=== PATIENT | female | born 1990 | race Caucasian/White ===

== ENCOUNTER → 2016-08-02 | Outpatient (CLI) | payer BC ==
--- NOTE | 2016-08-02 10:49 | US ---
EXAMINATION TYPE: US venous doppler duplex LE RT DATE OF EXAM: 08/02/2016 10:01 AM COMPARISON: NONE CLINICAL HISTORY: 26-year-old female with right Leg, Edema/Pain right Calf M79.661,R22.41 Swelling. P atient is 37 wks with right leg pain, redness and swelling SIDE PERFORMED: right TECHNIQUE: The lower extremity deep venous system is examined utilizing real time linear array sonog kacie with graded compression, doppler sonography and color-flow sonography. FINDINGS: VESSELS IMAGED: External Iliac Vein (EIV) Common Femoral Vein Deep Femoral Vein Greater Saphenous Vein * Femoral Vein Popliteal Vein Small Saphenous Vein * (* superficial vessels) Right Leg: Negative for RLE DVT Scanned the patient's right upper medial calf at the focal area of redness and pain. No superficial or deep venous thrombus noted. The subcutaneous fat disease somewhat thickened, heterogeneous, and w ith edema along the superficial fascial plane. IMPRESSION: 1. No evidence for DVT within the right lower extremity imaged from the groin to the knee. 2. Along the medial upper right calf at the site of redness and pain, there is thickening of the subc utaneous fat and some superficial fascial edema. Correlate for cellulitis.
== END | disposition home or self-care (01) ==
LOC: RADUSWWP 09:26
PROVIDERS: ATTEND Obstetrics & Gynecology
DX: O26.893 Other specified pregnancy related conditions, third trimester (principal); R60.0 Localized edema; O99.89 Other specified diseases and conditions complicating pregnancy, childbirth and the puerperium; M79.661 Pain in right lower leg; Z3A.37 37 weeks gestation of pregnancy

== ENCOUNTER 2016-08-16 05:57 | Inpatient (IN) | payer BC ==
[2016-08-16] MEDS ORDERED: LIDOCAINE 1% (PF) 10 MG/ML (30 ML SDV) SQ PRN (06:19)
[2016-08-16] MEDS ORDERED: METHYLERGONOVINE 0.2 MG/ML 1 ML AMP IM PRN (06:19)
[2016-08-16] MEDS ORDERED: TERBUTALINE 1 MG/ML VIAL SQ PRN (06:19)
[2016-08-16] MEDS ORDERED: OXYTOCIN 10 UNIT/ML 1 ML VIAL IM PRN (06:19)
[2016-08-16] MEDS ORDERED: CARBOPROST TROMETHAMINE 250 MCG/ML 1 ML AMP IM PRN (06:19)
[2016-08-16 06:23] LABS: Glucose,Whole Blood 86 mg/dL (75-99)
[2016-08-16] MEDS: LACTATED RINGERS 1,000 ML IV SCH ×2 (06:54→12:53)
[2016-08-16 07:17] LABS: Basophils % (A) 0 %; CHCM 34.5; Eosinophils % (A) 0 %; HCT 37.4 % (34.0-46.0); HDW 2.83; HGB 12.8 gm/dL (11.4-16.0); Luc # (Auto) 0.17; Luc % (Auto) 2; Lymphocytes # (A) 1.1 k/uL (1.0-4.8); Lymphocytes % (A) 11 %; MCHC 34.2 g/dL (31.0-37.0); MCV 90.5 fL (80.0-100.0); Mean Platelet Volume 7.7; Monocytes # (A) 0.4 k/uL (0-1.0); Monocytes % (A) 4 %; Neutrophils # (A) 8.1 k/uL (1.3-7.7); Neutrophils % (A) 82 %; RBC 4.13 m/uL (3.80-5.40); RDW 13.7 % (11.5-15.5); WBC 9.8 k/uL (3.8-10.6); WBC (Perox) 10.42
--- NOTE | 2016-08-16 07:22 | P.HPOB ---
History of Present Illness This is a 26-year-old white female 1 para 0 EDC 08/23/2016 at 39 weeks gestation. Patient presents today for induction, with gestational diabetes on insulin. Blood sugars have been in normal healthy ranges. She has not taken insulin since Saturday. Blood sugar this morning on admission is 80. In addition, patient does report overall body itching, no rash.. She is having mild irregular contractions spontaneously. Fetus is been active throughout the . Past medical history is significant for asthma, under good control. She also has a history of fibromyalgia. Past surgical history tonsillectomy and adenoid ectomy and 2003. Current medications vitamins. ALLERGIES none known. 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 Family history is significant for breast cancer, hepatitis C, prostate cancer. history blood type is B+, rubella status nonimmune. Group B strep cultures, HIV testing, hepatitis B surface antigen, Pap smear, urine culture all negative. One hour Glucola elevated, 3 hour GTT consistent with gestational diabetes. Impression: 39 week intrauterine , gestational diabetes with good sugar control on insulin, rubella status nonimmune, here for elective induction of labor, all signs reassuring. Plan: Oxytocin per hospital protocol. Close maternal and surveillance. Anticipating normal spontaneous vaginal delivery. Past Medical History Past Medical History: Fibromyalgia History of Any Multi-Drug Resistant Organisms: None Reported Past Surgical History: Adenoidectomy, Tonsillectomy Past Anesthesia/Blood Transfusion Reactions: No Reported Reaction Past Psychological History: Anxiety Smoking Status: Never smoker Past Alcohol Use History: None Reported Past Drug Use History: None Reported Medications and Allergies Home Medications Medication Instructions Recorded Confirmed Type Pnv with Ca,No.72/Iron/FA 1 tab PO DAILY 05/31/16 08/16/16 History [ Plus Tablet] Insulin Glulisine [Apidra] 2 units SQ ACHS PRN 08/16/16 08/16/16 History Allergies Allergy/AdvReac Type Severity Reaction Status Date / Time No Known Allergies Allergy Verified 08/16/16 06:10 Exam - Vital Signs Vital signs: Intake and Output 08/15/16 08/16/16 08/16/16 22:59 06:59 14:59 Other: Weight 70.307 kg
[2016-08-16] MEDS: OXYTOCIN 20 UNITS/1000 ML NS 1,000 ML IV SCH (07:24)
[2016-08-16 07:33] VITALS: BMI 27.4
[2016-08-16] MEDS ORDERED: SODIUM CHLORIDE 0.9% 100 ML BAG ONE (11:17)
[2016-08-16] MEDS ORDERED: BUPIVACAINE (PF) 0.25% 30 ML VIAL ONE (11:17)
[2016-08-16] MEDS ORDERED: fentaNYL (PF) 50 MCG/ML 5 ML AMP ONE (11:17)
[2016-08-16] MEDS ORDERED: HYDROmorphone (PF) 1 MG/ML ONE (16:41)
[2016-08-16] MEDS ORDERED: SUCCINYLCHOLINE CHLORIDE 100 MG/5 ML SYR IV ONE (16:41)
[2016-08-16] MEDS ORDERED: OXYTOCIN 10 UNIT/ML 1 ML VIAL ONE (16:41)
[2016-08-16] MEDS ORDERED: PROPOFOL 10 MG/ML 20 ML VIAL IV ONE (16:41)
[2016-08-16] MEDS ORDERED: diphenhydrAMINE 25 MG CAP PO PRN (17:26)
[2016-08-16] MEDS ORDERED: METOCLOPRAMIDE 5 MG/ML 2 ML VIAL IVP PRN (17:26)
[2016-08-16] MEDS ORDERED: ACETAMINOPHEN TAB 325 MG TAB PO PRN (17:26)
[2016-08-16] MEDS ORDERED: NALOXONE 0.4 MG/ML 1 ML VIAL IV PRN (17:26)
[2016-08-16] MEDS ORDERED: ZOLPIDEM 5 MG TAB PO PRN (17:26)
[2016-08-16] MEDS ORDERED: diphenhydrAMINE 50 MG CAP PO PRN (17:26)
[2016-08-16] MEDS ORDERED: HYDROmorphone PCA 5 MG/25 ML SYRINGE IV PRN (17:26)
[2016-08-16] MEDS ORDERED: diphenhydrAMINE 50 MG/ML 1 ML VIAL IVP PRN ×2 (17:26)
[2016-08-16] MEDS ORDERED: ONDANSETRON 4 MG/2 ML VIAL IVP PRN (17:26)
--- NOTE | 2016-08-16 17:26 | P.OP ---
Date of Procedure: 08/16/16 Preoperative Diagnosis: Gestational diabetic on insulin, 39 weeks gestation, nonreassuring heart tones Postoperative Diagnosis: I occiput transverse position, tight nuchal cord 1 Procedure(s) Performed: Primary low transverse section, STAT Anesthesia: MICHAEL Surgeon: Norma Flores [employer] Design Engineer #1: Jose Daniels Estimated Blood Loss (ml): 300 IV fluids (ml): 800 Urine output (ml): 100 Pathology: other Condition: stable (Placenta) Disposition: PACU Description of Procedure: Patient is brought to the operating suite where a general anesthetic is administered without difficulty. The decision for stat was made based upon nonreassuring heart tones, worsening with epidural bolusing. Martinez catheter is placed to direct drainage. The appropriate timeout is performed. The abdomen is prepped and draped in the usual sterile fashion. A low transverse skin incision is made in this is carried down through the subcutaneous tissue to the fascia. Fascia is isolated, scored and extended bilaterally with curved Stearns scissors. Peritoneum is next identified and incised, there is no bowel or bladder involvement. The bladder blade is placed over the bladder and at all times the bladder is Well from the operative field to avoid bladder and/or ureteral injury. The uterus is entered in a low transverse fashion. The incision is extended manually. The head is delivered in the right occiput transverse position, there was a tight nuchal cord 1 that is reduced. The oropharynx nasopharynx and external nares are bulb suctioned. The patient is officially delivered of a liveborn female infant at 16 50 hours. The umbilical cord is doubly clamped and ligated, she is handed to waiting nurses for evaluation where scores of 48 and 9 at one and 5 and 10 minutes respectively are given. Cord gases are sent to the lab for evaluation. The placentas delivered manually, it is inspected and noted to be intact with trivascular cord at 1651 hrs. At this time the uterus is externalized. 2 g of Kefzol are given intravenously. Pitocin is also given. Uterus is massaged and hemostasis is excellent. The uterus is wiped clean with a sterile sponge to avoid any retained products of conception. The uterus is closed in a two-step fashion, first layer running locking, second layer imbricated. Excellent reapproximation is noted. Bilateral tubes and ovaries are normal to inspection. The abdomen is suctioned with suction on guard and the uterus is gently placed back into the abdominal cavity. Bilateral gutters are inspected and cleaned. The incision is once again inspected, noted to be nicely intact. Peritoneum was allowed to close by secondary intention. Fascia is closed in a running fashion with 0 Vicryl suture with over ligation in the midline. Subcutaneous tissue was irrigated, noted to be clean and dry. It is reapproximated with 3-0 Vicryl in a running stitch. 4-0 undyed Vicryl in a subcuticular manner is used for final skin closure. All sponge needle and enhancement counts are correct at the end of the procedure. Patient is brought back to the recovery room in very good condition with stable vital signs including blood pressure 102/78, pulse 98, O2 saturation 98, respiratory rate 18. Infant weighed 7 lbs. 7 oz. or 3360 g.
[2016-08-16] MEDS ORDERED: CITRIC ACID-SODIUM CITRATE 15 ML CUP PO ONE (17:35)
[2016-08-16] MEDS: KETOROLAC 30 MG/ML 1 ML VIAL IVP PRN (18:03)
[2016-08-17] MEDS: KETOROLAC 30 MG/ML 1 ML VIAL IVP PRN ×3 (00:07→12:11)
[2016-08-17] MEDS: LACTATED RINGERS 1,000 ML IV SCH ×5 (01:19→20:28)
[2016-08-17] MEDS: SENNOSIDES-DOCUSATE SODIUM 1 EACH TAB PO SCH ×3 (01:57→20:27)
--- NOTE | 2016-08-17 08:21 | P.PN ---
Subjective Principal diagnosis: Postoperative day one Objective - Vital Signs Vital signs: Vital Signs Temp 98.2 F 08/17/16 04:00 Pulse 99 08/17/16 04:00 Resp 16 08/17/16 04:00 BP 126/78 08/17/16 04:00 Pulse Ox 98 08/17/16 04:00 Intake & Output 08/16/16 08/17/16 08/17/16 18:59 06:59 18:59 Intake Total 2300 Output Total 450 1250 Balance 1850 -1250 Weight 70.307 kg Intake: IV 2300 Lactated Ringers 1,000 ml 1500 @ 125 mls/hr IV .Q8H YVON Rx#:[id number] Output: Urine 150 1250 Uretheral (Martinez) 1050 Estimated Blood Loss 300 Other: # Voids 1 - Constitutional General appearance: Present: average body habitus, cooperative - EENT Eyes: Present: PERRLA ENT: Present: hard of hearing - Neck Neck: Present: normal ROM Thyroid: bilateral: normal size - Respiratory Respiratory: bilateral: CTA - Cardiovascular Rhythm: regular - Gastrointestinal General gastrointestinal: Present: normal bowel sounds - Integumentary Integumentary Comment(s): Incision clean and dry, intact, Steri-Strips applied. Integumentary: Present: normal - Neurologic Neurologic: Present: CNII-XII intact - Musculoskeletal Musculoskeletal: Present: gait normal - Labs CBC & Chem 7: 08/16/16 07:03 Assessment and Plan Plan: Continue postoperative care. Advanced diet and activity. Likely discharge home tomorrow. Time with Patient: Less than 30
[2016-08-17 08:53] LABS: Basophils % (A) 0 %; CH 31.3; CHCM 34.6; Eosinophils # (A) 0.1 k/uL (0-0.7); Eosinophils % (A) 1 %; HCT 32.1 % (34.0-46.0); HDW 2.78; HGB 10.8 gm/dL (11.4-16.0); Luc # (Auto) 0.15; Luc % (Auto) 1; Lymphocytes # (A) 0.8 k/uL (1.0-4.8); Lymphocytes % (A) 6 %; MCH 30.6 pg (25.0-35.0); MCHC 33.6 g/dL (31.0-37.0); MCV 91.1 fL (80.0-100.0); Mean Platelet Volume 7.7; Monocytes # (A) 0.4 k/uL (0-1.0); Monocytes % (A) 3 %; Neutrophils # (A) 12.4 k/uL (1.3-7.7); Neutrophils % (A) 90 %; RBC 3.53 m/uL (3.80-5.40); RDW 13.7 % (11.5-15.5); WBC 13.9 k/uL (3.8-10.6); WBC (Perox) 14.25
[2016-08-17] MEDS: IBUPROFEN 600 MG TAB PO PRN (17:59)
[2016-08-17] MEDS: SIMETHICONE 80 MG CHEWABLE PO SCH (18:11)
[2016-08-17] MEDS: Acetaminophen-Codeine 300-30mg TAB PO PRN (20:26)
[2016-08-17] MEDS: OXYTOCIN 20 UNITS/1000 ML NS 1,000 ML IV SCH (20:27)
[2016-08-17 21:23] VITALS: RESP 20
[2016-08-18] MEDS: IBUPROFEN 600 MG TAB PO PRN ×2 (01:09→13:06)
[2016-08-18] MEDS: SIMETHICONE 80 MG CHEWABLE PO SCH ×3 (01:09→16:33)
[2016-08-18] MEDS: LACTATED RINGERS 1,000 ML IV SCH (02:16)
[2016-08-18] MEDS: SENNOSIDES-DOCUSATE SODIUM 1 EACH TAB PO SCH (07:49)
[2016-08-18] MEDS: Acetaminophen-Codeine 300-30mg TAB PO PRN (07:49)
--- NOTE | 2016-08-18 10:04 | P.DS ---
Providers Date of admission: 08/16/16 05:57 Expected date of discharge: 08/18/16 Attending physician: Norma Flores Primary care physician: Mikhail [facility] Course: This is a 26-year-old white female 1 para 0 EDC 08/23/2016 at 39 weeks gestation. Patient presented for induction with favorable cervix, essentially unremarkable with the exception of gestational diabetes on insulin. Blood sugar was normal on admission. No insulin had been taken for several days prior to admission. Fetus is been active throughout the . Group B strep cultures negative, rubella status nonimmune. Please see my dictated history and physical for details. Patient progressed through labor but had issues with nonreassuring heart tones. For this reason she underwent a primary low transverse section with a general anesthetic. She gave to a liveborn female infant with scores of 48 and 9 at one and 5 and 10 minutes respectively. Infant weighed 3360 g or 7 lbs. 7 oz. She did well intraoperatively with an estimated blood loss of only 300 mL's. The was a tight nuchal cord 1 that was reduced. Please see my dictated delivery note for details. This morning the patient and her baby are both doing very well. The patient is voiding, ambulate and passing flatus without difficulty. Vital signs are stable and she is afebrile. Low transverse incision is clean and dry, intact, Steri-Strips applied. Fundus is firm and in the midline, symmetric and 18 week size. Breasts are not engorged. Breast-feeding is going well. Velma is doing well. Patient is being discharged home today in very good condition. I have given her prescription for Tylenol 3, #25, single 1-2 by mouth every 4 hours when necessary moderate to severe pain. She will alternate this with over-the- counter Motrin products, ibuprofen pills, 3 pills every 6 hours as needed for pain. I have given her prescription for a double electric breast pump. I've asked her to call with any fevers shakes or chills, foul smelling or copious lochia, redness or drainage of the incision, with any pain not alleviated by these products, or with any concerns. will follow up with manager industrial as recommended. Patient Condition at Discharge: Good Plan - Discharge Summary Discharge Medication List Pnv with Ca,No.72/Iron/FA [ Plus Tablet] 1 tab PO DAILY 05/31/16 [ History] Insulin Glulisine [Apidra] 2 units SQ ACHS PRN 08/16/16 [History] Follow up Appointment(s)/Referral(s): Norma Flores MD [STAFF PHYSICIAN] - 2 Weeks Discharge Disposition: HOME SELF-CARE
[2016-08-18 15:06] VITALS: BP 118/68; PULSE 90; TEMP 98.3
== END 2016-08-18 18:15 | disposition home or self-care (01) | DRG 766 ==
LOC: 4FBP 05:57
PROVIDERS: ADMIT Obstetrics & Gynecology; ATTEND Obstetrics & Gynecology
PROC: 3E033VJ Introduction of Other Hormone into Peripheral Vein, Percutaneous Approach (ICD-10-PCS; 2016-08-16)
PROC: 10D00Z1 Extraction of Products of Conception, Low, Open Approach (ICD-10-PCS; principal; 2016-08-16 06:15)
DX: O24.424 Gestational diabetes mellitus in childbirth, insulin controlled (principal); F41.9 Anxiety disorder, unspecified; O99.344 Other mental disorders complicating childbirth; O69.1XX0 Labor and delivery complicated by cord around neck, with compression, not applicable or unspecified; O76 Abnormality in fetal heart rate and rhythm complicating labor and delivery; J45.909 Unspecified asthma, uncomplicated; M79.7 Fibromyalgia; O99.89 Other specified diseases and conditions complicating pregnancy, childbirth and the puerperium; O99.52 Diseases of the respiratory system complicating childbirth; Z3A.39 39 weeks gestation of pregnancy; Z37.0 Single live birth; Z80.3 Family history of malignant neoplasm of breast; Z79.4 Long term (current) use of insulin; Z28.21 Immunization not carried out because of patient refusal; Z80.42 Family history of malignant neoplasm of prostate; Z83.79 Family history of other diseases of the digestive system; Z83.1 Family history of other infectious and parasitic diseases
CPT/HCPCS: 83036; 85025; 88307

== ENCOUNTER 2019-04-05 03:05 | Emergency (ER) | payer BC ==
[2019-04-05] MEDS ORDERED: SODIUM CHLORIDE 0.9% 1,000 ML IV STA (03:41)
--- NOTE | 2019-04-05 03:42 | ED ---
General Adult HPI - General Chief complaint: Syncope Stated complaint: Weakness/tremors Source: patient, EMS Mode of arrival: EMS Limitations: no limitations - History of Present Illness Initial comments: Patient is a pleasant 29-year-old female who presents the emergency department today for evaluation after an apparent syncopal episode at home. Patient reports that she woke from sleep and ambulated to the bathroom without difficulty she had a bowel movement and upon standing to walk back to the bedroom she got lightheaded and passed out. found her and called 911. Upon EMS arrival patient felt very weak and shaky she is mildly hypotensive and tachycardic but awake alert oriented talking. There is never any seizure activity she had no loss of bowel or bladder continence or tongue biting. No apparent injury from falling onto a carpeted floor. Has no cardiac history no history of dysrhythmias. She has no history of clotting disorder DVT or PE. She has no family history of sudden cardiac or cardiac disease in young people. She has no family history of clotting disorders. Patient is not . - Related Data Home Medications Medication Instructions Recorded Confirmed Pnv,Calcium 72/Iron/Folic Acid 1 tab PO DAILY 05/31/16 08/16/16 [ Plus Tablet] Insulin Glulisine [Apidra] 2 units SQ ACHS PRN 08/16/16 08/16/16 Allergies Allergy/AdvReac Type Severity Reaction Status Date / Time No Known Allergies Allergy Verified 08/16/16 06:10 Review of Systems ROS Statement: Those systems with pertinent positive or pertinent negative responses have been documented in the HPI. ROS Other: All systems not noted in ROS Statement are negative. Past Medical History Past Medical History: Fibromyalgia History of Any Multi-Drug Resistant Organisms: None Reported Past Surgical History: Adenoidectomy, Tonsillectomy Past Anesthesia/Blood Transfusion Reactions: No Reported Reaction Past Psychological History: Anxiety Smoking Status: Never smoker Past Alcohol Use History: Occasional Past Drug Use History: None Reported - Past Family History Father Family Medical History: No Reported History General Exam - General Exam Comments Initial Comments: Physical Exam GENERAL: Patient is well-developed and well-nourished. Patient is nontoxic and well-hydrated and is in no distress. HENT: Normocephalic, Atraumatic. EYES: PERRL, EOMI PULMONARY: Unlabored respirations. No audible rales rhonchi or wheezing was noted. CARDIOVASCULAR: There is a regular rate and rhythm without any murmurs gallops or rubs. ABDOMEN: Soft and nontender with normal bowel sounds. SKIN: Skin is clear with no lesions or rashes and otherwise unremarkable. : Deferred NEUROLOGIC: Patient is alert and oriented x3. Moving all extremities spontaneously MUSCULOSKELETAL: Normal extremities with adequate strength and full range of motion. No lower extremity swelling or edema. No calf tenderness. PSYCHIATRIC: Normal psychiatric evaluation. Limitations: no limitations Course Vital Signs 04/05/19 04/05/19 04/05/19 03:13 04:00 05:00 Temperature 98.1 F Pulse Rate 83 79 84 Respiratory 17 17 16 Rate Blood Pressure 103/74 110/61 100/64 O2 Sat by Pulse 98 99 99 Oximetry 04/05/19 06:48 Temperature 98.5 F Pulse Rate 95 Respiratory 18 Rate Blood Pressure 98/66 O2 Sat by Pulse 99 Oximetry EKG Findings - EKG Comments: EKG Findings:: EKG was obtained due to complaint of syncope, EKG obtained at 3:19 AM, rate is 95 rhythm is sinus there is normal axis, normal intervals, MD 120, QRS 74, QTC 477 there are no acute ST elevations or depressions no evidence of acute ischemia, infarction or arrhythmia. Medical Decision Making - Medical Decision Making She was seen and evaluated history is obtained from the patient, EMS and at bedside Healthy 29-year-old female who had a syncopal episode after a bowel movement this evening. I suspect that this is likely vasovagal in nature however labs will be obtained. She was treated with IV fluids, labs are obtained are no significant abnormalities troponin is negative EKG was unremarkable d-dimer is negative. These results were discussed with the patient has been at bedside are comfortable plan for discharge home and outpatient follow-up. - Lab Data Result diagrams: 04/05/19 05:10 04/05/19 05:10 Lab Results 04/05/19 04/05/19 04/05/19 Range/Units 04:10 05:03 05:03 WBC (3.8-10.6) k/uL RBC (3.80-5.40) m/uL Hgb (11.4-16.0) gm/dL Hct (34.0-46.0) % MCV (80.0-100.0) fL MCH (25.0-35.0) pg MCHC (31.0-37.0) g/dL RDW (11.5-15.5) % Plt Count (150-450) k/uL Neutrophils % % Lymphocytes % % Monocytes % % Eosinophils % % Basophils % % Neutrophils # (1.3-7.7) k/uL Lymphocytes # (1.0-4.8) k/uL Monocytes # (0-1.0) k/uL Eosinophils # (0-0.7) k/uL Basophils # (0-0.2) k/uL PT (9.0-12.0) sec INR (<1.2) APTT (22.0-30.0) sec D-Dimer (<0.60) mg/L FEU Sodium (137-145) mmol/L Potassium (3.5-5.1) mmol/L Chloride (98-107) mmol/L Carbon Dioxide (22-30) mmol/L Anion Gap mmol/L BUN (7-17) mg/dL Creatinine (0.52-1.04) mg/dL Est GFR (CKD-EPI)AfAm (>60 ml/min/1.73 sqM) Est GFR (CKD-EPI)NonAf (>60 ml/min/1.73 sqM) Glucose (74-99) mg/dL POC Glucose (mg/dL) 96 (75-99) mg/dL POC Glu [employer] Glass Mechanic ID Sarina Webster Calcium (8.4-10.2) mg/dL Magnesium (1.6-2.3) mg/dL Total Bilirubin (0.2-1.3) mg/dL AST (14-36) U/L ALT (4-34) U/L Alkaline Phosphatase (38-126) U/L Troponin I (0.000-0.034) ng/mL Total Protein (6.3-8.2) g/dL Albumin (3.5-5.0) g/dL Urine Color Yellow Urine Appearance Clear (Clear) Urine pH 7.5 (5.0-8.0) Ur Specific [place] 1.014 (1.001-1.035) Urine Protein Negative (Negative) Urine Glucose (UA) Negative (Negative) Urine Ketones Negative (Negative) Urine Blood Negative (Negative) Urine Nitrite Negative (Negative) Urine Bilirubin Negative (Negative) Urine Urobilinogen <2.0 (<2.0) mg/dL Ur Leukocyte Esterase Small H (Negative) Urine RBC 1 (0-5) /hpf Urine WBC 4 (0-5) /hpf Ur Squamous Epith Cells 3 (0-4) /hpf Urine Mucus Rare H (None) /hpf Urine HCG, Qual Not Detected (Not Detectd) 04/05/19 04/05/19 04/05/19 Range/Units 05:10 05:10 05:10 WBC 8.7 (3.8-10.6) k/uL RBC 4.48 (3.80-5.40) m/uL Hgb 13.4 (11.4-16.0) gm/dL Hct 39.3 (34.0-46.0) % MCV 87.7 (80.0-100.0) fL MCH 29.8 (25.0-35.0) pg MCHC 33.9 (31.0-37.0) g/dL RDW 12.0 (11.5-15.5) % Plt Count 248 (150-450) k/uL Neutrophils % 78 % Lymphocytes % 14 % Monocytes % 6 % Eosinophils % 1 % Basophils % 0 % Neutrophils # 6.8 (1.3-7.7) k/uL Lymphocytes # 1.2 (1.0-4.8) k/uL Monocytes # 0.5 (0-1.0) k/uL Eosinophils # 0.1 (0-0.7) k/uL Basophils # 0.0 (0-0.2) k/uL PT 10.1 (9.0-12.0) sec INR 0.9 (<1.2) APTT 22.1 (22.0-30.0) sec D-Dimer 0.20 (<0.60) mg/L FEU Sodium 139 (137-145) mmol/L Potassium 4.1 (3.5-5.1) mmol/L Chloride 106 (98-107) mmol/L Carbon Dioxide 24 (22-30) mmol/L Anion Gap 9 mmol/L BUN 14 (7-17) mg/dL Creatinine 0.66 (0.52-1.04) mg/dL Est GFR (CKD-EPI)AfAm >90 (>60 ml/min/1.73 sqM) Est GFR (CKD-EPI)NonAf >90 (>60 ml/min/1.73 sqM) Glucose 100 H (74-99) mg/dL POC Glucose (mg/dL) (75-99) mg/dL POC Glu [employer]otive Glass Mechanic ID Calcium 9.6 (8.4-10.2) mg/dL Magnesium 1.7 (1.6-2.3) mg/dL Total Bilirubin 0.4 (0.2-1.3) mg/dL AST 27 (14-36) U/L ALT 14 (4-34) U/L Alkaline Phosphatase 82 (38-126) U/L Troponin I (0.000-0.034) ng/mL Total Protein 7.0 (6.3-8.2) g/dL Albumin 4.4 (3.5-5.0) g/dL Urine Color Urine Appearance (Clear) Urine pH (5.0-8.0) Ur Specific [place] (1.001-1.035) Urine Protein (Negative) Urine Glucose (UA) (Negative) Urine Ketones (Negative) Urine Blood (Negative) Urine Nitrite (Negative) Urine Bilirubin (Negative) Urine Urobilinogen (<2.0) mg/dL Ur Leukocyte Esterase (Negative) Urine RBC (0-5) /hpf Urine WBC (0-5) /hpf Ur Squamous Epith Cells (0-4) /hpf Urine Mucus (None) /hpf Urine HCG, Qual (Not Detectd) 04/05/19 Range/Units 05:10 WBC (3.8-10.6) k/uL RBC (3.80-5.40) m/uL Hgb (11.4-16.0) gm/dL Hct (34.0-46.0) % MCV (80.0-100.0) fL MCH (25.0-35.0) pg MCHC (31.0-37.0) g/dL RDW (11.5-15.5) % Plt Count (150-450) k/uL Neutrophils % % Lymphocytes % % Monocytes % % Eosinophils % % Basophils % % Neutrophils # (1.3-7.7) k/uL Lymphocytes # (1.0-4.8) k/uL Monocytes # (0-1.0) k/uL Eosinophils # (0-0.7) k/uL Basophils # (0-0.2) k/uL PT (9.0-12.0) sec INR (<1.2) APTT (22.0-30.0) sec D-Dimer (<0.60) mg/L FEU Sodium (137-145) mmol/L Potassium (3.5-5.1) mmol/L Chloride (98-107) mmol/L Carbon Dioxide (22-30) mmol/L Anion Gap mmol/L BUN (7-17) mg/dL Creatinine (0.52-1.04) mg/dL Est GFR (CKD-EPI)AfAm (>60 ml/min/1.73 sqM) Est GFR (CKD-EPI)NonAf (>60 ml/min/1.73 sqM) Glucose (74-99) mg/dL POC Glucose (mg/dL) (75-99) mg/dL POC Glu [employer] Glass Mechanic ID Calcium (8.4-10.2) mg/dL Magnesium (1.6-2.3) mg/dL Total Bilirubin (0.2-1.3) mg/dL AST (14-36) U/L ALT (4-34) U/L Alkaline Phosphatase (38-126) U/L Troponin I <0.012 (0.000-0.034) ng/mL Total Protein (6.3-8.2) g/dL Albumin (3.5-5.0) g/dL Urine Color Urine Appearance (Clear) Urine pH (5.0-8.0) Ur Specific [place] (1.001-1.035) Urine Protein (Negative) Urine Glucose (UA) (Negative) Urine Ketones (Negative) Urine Blood (Negative) Urine Nitrite (Negative) Urine Bilirubin (Negative) Urine Urobilinogen (<2.0) mg/dL Ur Leukocyte Esterase (Negative) Urine RBC (0-5) /hpf Urine WBC (0-5) /hpf Ur Squamous Epith Cells (0-4) /hpf Urine Mucus (None) /hpf Urine HCG, Qual (Not Detectd) Disposition Clinical Impression: Vasovagal syncope Disposition: HOME SELF-CARE Condition: Stable Instructions (If sedation given, give patient instructions): Syncope (DC) Additional Instructions: Make sure you stay hydrated, drink plenty of fluids Follow up with PCP for re-evaluation Return to the ER for any recurrent episodes of passing out or if you develop any chest pain, palpitations, shortness or breath or new or concerning symptoms Is patient prescribed a controlled substance at d/c from ED?: No Referrals: Mikhail Goldsmith DO [Primary Care Provider] - 1-2 days
[2019-04-05 04:13] LABS: Glucose,Whole Blood 96 mg/dL (75-99)
--- NOTE | 2019-04-05 04:15 | XR ---
EXAMINATION TYPE: XR chest 2V DATE OF EXAM: 04/05/2019 COMPARISON: 03/30/2012 HISTORY: Chest pain TECHNIQUE: 2 views FINDINGS: Heart and mediastinum are normal. Lungs are clear. Diaphragm is normal. Bony thorax appears normal. IMPRESSION: Normal chest. No change.
[2019-04-05 05:28] LABS: Basophils % (A) 0 %; Eosinophils # (A) 0.1 k/uL (0-0.7); Eosinophils % (A) 1 %; HCT 39.3 % (34.0-46.0); HGB 13.4 gm/dL (11.4-16.0); Lymphocytes # (A) 1.2 k/uL (1.0-4.8); Lymphocytes % (A) 14 %; MCH 29.8 pg (25.0-35.0); MCHC 33.9 g/dL (31.0-37.0); MCV 87.7 fL (80.0-100.0); Mean Platelet Volume 7.6; Monocytes # (A) 0.5 k/uL (0-1.0); Monocytes % (A) 6 %; Neutrophils # (A) 6.8 k/uL (1.3-7.7); Neutrophils % (A) 78 %; Platelet Count 248 k/uL (150-450); RBC 4.48 m/uL (3.80-5.40); WBC 8.7 k/uL (3.8-10.6)
[2019-04-05 05:43] LABS: ALT 14 U/L (4-34); AST 27 U/L (14-36); African American GFR (CKD) >90 (>60 ml/min/1.73 sqM); Albumin 4.4 g/dL (3.5-5.0); Alkaline Phosphatase 82 U/L (38-126); Anion Gap 9 mmol/L; Blood Urea Nitrogen 14 mg/dL (7-17); Calcium 9.6 mg/dL (8.4-10.2); Carbon Dioxide 24 mmol/L (22-30); Chloride 106 mmol/L (98-107); Glucose 100 mg/dL (74-99); Magnesium 1.7 mg/dL (1.6-2.3); Non-African American GFR(CKD) >90 (>60 ml/min/1.73 sqM); Potassium 4.1 mmol/L (3.5-5.1); Sodium 139 mmol/L (137-145); Total Bilirubin 0.4 mg/dL (0.2-1.3)
[2019-04-05 05:57] LABS: D-Dimer 0.2 mg/L FEU (<0.60); INR 0.9 (<1.2)
[2019-04-05 05:58] LABS: Partial Thromboplastin Time 22.1 sec (22.0-30.0); Prothrombin Time 10.1 sec (9.0-12.0)
[2019-04-05 06:09] LABS: Appearance,Urine Clear (Clear); Bilirubin,Urine Negative (Negative); Blood,Urine Negative (Negative); Color,Urine Yellow; Glucose,Urine (UA) Negative (Negative); Ketones,Urine Negative (Negative); Leukocyte Esterase,Urine Small (Negative); Mucus,Urine Rare /hpf; Nitrite,Urine Negative (Negative); PH, Urine 7.5 (5.0-8.0); Protein,Urine Negative (Negative); RBC,Urine 1 /hpf (0-5); Specific Gravity,Urine 1.014 (1.001-1.035); Squamous Epithelial Cell,Urine 3 /hpf (0-4); Urobilinogen,Urine <2.0 mg/dL (<2.0); WBC,Urine 4 /hpf (0-5)
[2019-04-05 06:49] VITALS: BP 98/66; PULSE 95; RESP 18; TEMP 98.5
== END 2019-04-05 06:49 | disposition home or self-care (01) ==
LOC: EC 03:05
DX: R55 Syncope and collapse (principal); R53.1 Weakness; R25.1 Tremor, unspecified
CPT/HCPCS: 36415; 71046; 80053; 81001; 81025; 83735; 84484; 85025; 85379; 85610; 85730; 93005; 96360; 99284